=== PATIENT | male | born 1935 | race Caucasian/White ===

== ENCOUNTER → 2018-06-12 09:31 | Outpatient (CLI) | payer MEDICARE, SELFPAY ==
[2018-06-12 12:40] LABS: AST(SGOT) 28 U/L (15-37); Alanine Aminotransfer ALT/SGPT 38 U/L (16-61); Albumin, Serum 3.5 g/dL (3.2-5.0); Alkaline Phosphatase 137 U/L (45-117); Bilirubin, Direct 0.26 mg/dL (0.00-0.30); Cholesterol 123 mg/dL (200); Globulin 3.6 g/dL (2.2-4.2); High Density Lipoprotein 40 mg/dL; Protein, Total 7.1 g/dL (6.4-8.2); Triglycerides 99 mg/dL; Very Low Density Lipoprotein 20 mg/dL (5-40)
== END ==
PROVIDERS: Family Provider Internal Medicine; PCP Internal Medicine; Referring Provider Internal Medicine Cardiovascular Disease; Visit Provider Internal Medicine Cardiovascular Disease
DX: E78.5 Hyperlipidemia, unspecified (principal)
CPT/HCPCS: 36415; 80061; 80076

== ENCOUNTER → 2019-06-05 10:05 | Outpatient (CLI) | payer MEDICARE, SELFPAY ==
[2018-06-20 09:58] VITALS: BMI 26.8
[2019-06-05 12:44] LABS: AST(SGOT) 27 U/L (15-37); Alanine Aminotransfer ALT/SGPT 37 U/L (16-61); Albumin, Serum 3.7 g/dL (3.2-5.0); Alkaline Phosphatase 132 U/L (45-117); Bilirubin, Direct 0.29 mg/dL (0.00-0.30); Cholesterol 160 mg/dL (200); Globulin 3.7 g/dL (2.2-4.2); High Density Lipoprotein 44 mg/dL; Protein, Total 7.4 g/dL (6.4-8.2); Triglycerides 138 mg/dL; Very Low Density Lipoprotein 28 mg/dL (5-40)
== END ==
PROVIDERS: Family Provider Internal Medicine; PCP Internal Medicine; Referring Provider Internal Medicine Cardiovascular Disease; Visit Provider Internal Medicine Cardiovascular Disease
DX: E78.5 Hyperlipidemia, unspecified (principal)
CPT/HCPCS: 36415; 80061; 80076

== ENCOUNTER → 2020-06-02 07:55 | Outpatient (CLI) | payer MEDICARE, SELFPAY ==
[2019-06-10 09:34] VITALS: BMI 25.8
[2020-06-02 10:57] LABS: AST(SGOT) 29 U/L (15-37); Alanine Aminotransfer ALT/SGPT 33 U/L (16-61); Albumin, Serum 3.6 g/dL (3.2-5.0); Alkaline Phosphatase 121 U/L (45-117); Bilirubin, Direct 0.28 mg/dL (0.00-0.30); Cholesterol 247 mg/dL (200); Globulin 3.8 g/dL (2.2-4.2); High Density Lipoprotein 47 mg/dL; Protein, Total 7.4 g/dL (6.4-8.2); Triglycerides 140 mg/dL; Very Low Density Lipoprotein 28 mg/dL (5-40)
== END ==
PROVIDERS: PCP Internal Medicine; Referring Provider Internal Medicine Cardiovascular Disease; Visit Provider Internal Medicine Cardiovascular Disease
DX: E78.00 Pure hypercholesterolemia, unspecified (principal)
CPT/HCPCS: 36415; 80061; 80076

== ENCOUNTER → 2020-12-07 07:14 | Outpatient (CLI) | payer MEDICARE, SELFPAY ==
[2019-06-10 09:34] VITALS: BMI 25.8
[2020-12-07 11:07] LABS: AST(SGOT) 29 U/L (15-37); Alanine Aminotransfer ALT/SGPT 34 U/L (16-61); Albumin, Serum 3.7 g/dL (3.2-5.0); Alkaline Phosphatase 135 U/L (45-117); Cholesterol 162 mg/dL (200); Globulin 3.4 g/dL (2.2-4.2); High Density Lipoprotein 45 mg/dL; Protein, Total 7.1 g/dL (6.4-8.2); Triglycerides 112 mg/dL; Very Low Density Lipoprotein 22 mg/dL (5-40)
== END ==
PROVIDERS: PCP Internal Medicine; Referring Provider Internal Medicine Cardiovascular Disease; Visit Provider Internal Medicine Cardiovascular Disease
DX: E78.00 Pure hypercholesterolemia, unspecified (principal)
CPT/HCPCS: 36415; 80061; 80076

== ENCOUNTER → 2021-12-09 | Outpatient (CLI) | payer MEDICARE, SELFPAY ==
[2021-12-09 12:36] LABS: AST(SGOT) 33 U/L (15-37); Alanine Aminotransfer ALT/SGPT 42 U/L (16-61); Albumin, Serum 3.5 g/dL (3.2-5.0); Alkaline Phosphatase 116 U/L (45-117); Bilirubin, Direct 0.21 mg/dL (0.00-0.30); Cholesterol 170 mg/dL (200); Globulin 3.7 g/dL (2.2-4.2); High Density Lipoprotein 42 mg/dL; Protein, Total 7.2 g/dL (6.4-8.2); Triglycerides 111 mg/dL; Very Low Density Lipoprotein 22 mg/dL (5-40)
== END | disposition home or self-care (01) ==
LOC: MTLAB 09:56
PROVIDERS: PCP Internal Medicine; Referring Provider Internal Medicine Cardiovascular Disease; Visit Provider Internal Medicine Cardiovascular Disease
DX: E78.00 Pure hypercholesterolemia, unspecified (principal); E78.5 Hyperlipidemia, unspecified
CPT/HCPCS: 36415; 80061; 80076

== ENCOUNTER → 2022-11-13 | Outpatient (CLI) | payer MEDICARE, SELFPAY ==
--- NOTE | 2022-11-13 14:10 | STRESSREP_ITS ---
Stress Test Report Pharmacologic myocardial perfusion stress test. 87-year-old man with a history of coronary artery disease Resting EKG demonstrates sinus bradycardia with a rate of 48 bpm. Left bundle branch block pattern is noted. Resting blood pressure is 186/90 mmHg. 0.4 mg of regadenoson was infused per usual protocol followed by rapid intravenous sa line flush injection. Continuous EKG monitoring was performed. The maximum heart rate was 75 bpm which was 55% of max impacted heart rate the maximum workload was 1 metabolic equivalent. At rest there were no ST or T wave changes noted to suggest ischemia and at peak infusion nonspecific ST changes were noted which did not meet the criteria for ischemia. No clinical angina is noted. The final blood pressure was 154/92 mmHg. Myocardial perfusion protocol. 14.1 mCi of technetium 99m sestamibi was injected at rest. 0.4 mg of regadenoson was infused per usual protocol. At peak infusion 43.9 mCi of technetium 99m sestamibi was injected stress images were obtained stress and rest images were reconstructed and compared in the short axis vertical long and horizontal long axis. Gated images were also obtained. Perfusion SPECT analysis: Review of the stress images demonstrate normal uptake of tracer noted in all areas of the myocardium. The resting images similar demonstrated normal uptake of tracer noted in all areas of the myocardium. No areas of reversibility are noted to suggest ischemia and no previous infarct is noted. Gated SPECT analysis: The gated ejection fraction is 61%. Conclusion: Normal pharmacologic myocardial perfusion stress test. Preserved ejection fraction.
== END | disposition home or self-care (01) ==
PROVIDERS: PCP Internal Medicine; Referring Provider Internal Medicine Cardiovascular Disease; Visit Provider Internal Medicine Cardiovascular Disease
DX: I25.10 Atherosclerotic heart disease of native coronary artery without angina pectoris (principal); I44.7 Left bundle-branch block, unspecified; R94.31 Abnormal electrocardiogram [ECG] [EKG]; Z95.5 Presence of coronary angioplasty implant and graft
CPT/HCPCS: 78452; 93017; A9500; A4216; J2785

== ENCOUNTER 2023-01-03 18:02 | Emergency (ER) | payer MEDICARE, SELFPAY ==
[2023-01-03 18:03] VITALS: BP 170/73; PULSE 57; RESP 18; TEMP 37; BMI 27.1
--- NOTE | 2023-01-03 18:11 | CT_ITS ---
STUDY: CT BRAIN WITHOUT CONTRAST REASON FOR EXAM: Male, 87 years old. Head injury, fall RADIATION DOSAGE (If Supplied By Facility): CTDIvol = ( 44.99 ) mGy, DLP = ( 812.98 ) mGycm TECHNIQUE: Transaxial CT imaging of the brain was performed without administration of intravenous contrast material. Individualized dose optimization techniques were used for this CT. COMPARISON: May 21, 2015s FINDINGS: There is right frontal soft tissue swelling Normal calvarium. There is mild cerebral atrophy with widening of the extra-axial spaces and ventricular dilatation. There are areas of decreased attenuation within the white matter tracts of the supratentorial brain, consistent with microvascular disease changes. Normal basal ganglia and thalami. Normal brainstem. Normal cerebellum. There is no intracranial hemorrhage. There are no findings of an acute ischemic infarction. There is moderate mucosal thickening of the paranasal sinuses. CT/Brain/Head without Contrast IMPRESSION: Chronic involutional changes of the brain. Electronically Signed: John Serra MD at 18:58 EDT ,
--- NOTE | 2023-01-03 18:11 | CT_ITS ---
STUDY: CT FACIAL BONES WITHOUT CONTRAST REASON FOR EXAM: Male, 87 years old. Fall RADIATION DOSAGE (If Supplied By Facility): CTDIvol = ( 29.38 ) mGy, DLP = ( 474.11 ) mGycm TECHNIQUE: The patient was scanned in a multi detector CT scanner. Sagittal and coronal images were reconstructed. Individualized dose optimization techniques were used for this CT. COMPARISON: None. FINDINGS: There is right frontal soft tissue swelling. Normal orbital coleman and orbital contents. Normal nasal bones and anterior nasal spine. Normal zygomatic arches. Normal mandible. There are numerous missing teeth and cavities in the remaining teeth. Normal facial bones. There is no demonstrated fracture. There is moderate mucosal thickening of the paranasal sinuses. CT/Sinus/Facial Bone IMPRESSION: No fracture. Soft tissue swelling. Electronically Signed: John Serra MD at 19:00 EDT ,
--- NOTE | 2023-01-03 18:11 | CT_ITS ---
STUDY: CT CERVICAL SPINE WITHOUT CONTRAST REASON FOR EXAM: Male, 87 years old. Fall RADIATION DOSAGE (If Supplied By Facility): CTDIvol = ( 24.58 ) mGy, DLP = ( 584.19 ) mGycm TECHNIQUE: High resolution transaxial imaging was performed without contrast material. Sagittal and coronal images were reconstructed. Individualized dose optimization techniques were used for this CT. COMPARISON: None FINDINGS: Normal craniovertebral junction. Normal anterior atlantoaxial articulation. Normal odontoid process. There is reversal of the normal cervical lordosis. There is no acute fracture. There is demineralization of the Vertebral bodies and posterior osseous elements. C2-3: Normal endplates. Normal disc height and morphology. Facet spurring on the right. Normal central canal and intervertebral neuroforamina. C3-4: Disc space narrowing. Mild spurring to the right. Facet spurring on the right more than the left. No canal stenosis. Mild foraminal narrowing. C4-5: Disc space narrowing. Mild spurring. Facet spurring. No canal stenosis. Left foraminal narrowing C5-6: Disc space narrowing. Disc bulge and spurring. Facet spurring. No canal stenosis. Mild left foraminal narrowing. C6-7: Disc space narrowing. Disc bulge and spurring. Mild facet spurring. No canal stenosis. Neural foramina are patent. C7-T1: Normal endplates. Normal disc height and morphology. Facet spurring. Normal central canal and intervertebral neuroforamina. Normal visualized soft tissue structures. CT/Spine Cervical without Contras IMPRESSION: Multilevel degenerative changes, as described above. Electronically Signed: John Serra MD at 19:04 EDT ,
--- NOTE | 2023-01-03 18:13 | EX.ED.GENINJ ---
HPI History of Present Illness Chief Complaint: Fall Detail of Chief Complaint: Fall with head injury Informant: patient Narrative Narrative: Patient presents with a fall and head injury that occurred prior arrival in the emergency department. Patient states that he was working on a flatbed trailer that was stationary they had put to 4 x 4 boards on it that were not nailed in yet and he fell and tumbled off of them onto the ground. Apparently he hit his head on a 2 x 4. No loss of consciousness but his daughter states that he was confused afterwards. Patient denies any neck or chest pain. Denies abdominal pain. He denies pain in his hips he was able to stand. Patient is on Plavix and aspirin and has a cardiac stent. Patient unsure of his last tetanus shot. [facility] Medical History Atherosclerotic heart disease of [place] coronary artery without angina pectoris Encounter for long-term (current) use of other medications Essential (primary) hypertension Hyperlipidemia Left bundle branch block Sinus bradycardia Home Medications nitroglycerin 0.4 mg sublingual tablet (Nitrostat) 0.4 mg sublingual Q5-15M PRN Chest Pain 07/04/17 [History Last Taken Unknown] cinnamon bark-chromium picolinate 500 mg-100 mcg capsule cap PO 07/05/17 [History Last Taken Unknown] garlic 1,000 mg capsule 1,000 mg PO QPC 07/05/17 [History Last Taken Unknown] omega-3 fatty acids-fish oil 360 mg-1,200 mg capsule (Fish Oil) 1 cap PO QDAY 07/05/17 [History Last Taken Unknown] coenzyme Q10 100 mg capsule (Co Q-10) 100 mg PO DAILY 12/15/21 [History Last Taken Unknown] clopidogrel 75 mg tablet (Plavix) 75 mg PO QDAY #90 tabs 10/18/22 [Rx Last Taken Unknown] hydrochlorothiazide 25 mg tablet 25 mg PO QDAY #90 tabs 10/18/22 [Rx Last Taken Unknown] losartan 50 mg tablet 50 mg PO DAILY #90 tabs 10/18/22 [Rx Last Taken Unknown] metoprolol tartrate 25 mg tablet 25 mg PO BID #180 tabs 10/18/22 [Rx Last Taken Unknown] atorvastatin 20 mg tablet See Rx Instructions .Route .COMPLEX #90 tabs 12/19/22 [Rx Last Taken Unknown] aspirin 325 mg tablet 325 mg PO DAILY 01/03/23 [History Last Taken Unknown] cephalexin 500 mg capsule 500 mg PO Q6 #40 CAPSULES 01/03/23 [Rx Last Taken Unknown] Allergy/AdvReac Type Severity Reaction Status Date / Time No Known Allergies Allergy Verified 12/15/21 10:18 Family History Sister CAD (coronary artery disease) Hypertension Brother Hypertension Surgical History History of coronary artery stent placement (10/13/03) Social History Smoking Status: Never smoker alcohol intake: never ROS ROS ED Review of Systems ROS Unobtainable: other Constitutional Constitutional ED: Reports lethargy; Denies chills, fever(s), sweats or weight loss Eyes Eyes: Denies blurry vision, change in vision or diplopia ENT ENT ED: Reports other Details: Forehead laceration ; Denies rhinorrhea or sore throat Cardiovascular Cardiovascular: Denies chest pain, orthopnea or racing heartbeat Respiratory/Chest Respiratory/Chest: Denies cough, dyspnea, dyspnea on exertion, orthopnea or sputum Gastrointestinal Gastrointestinal: Denies abdominal pain, diarrhea, nausea or vomiting Genitourinary Genitourinary ED: Denies dysuria, hematuria or urinary frequency Musculoskeletal Musculoskeletal: Denies arthralgias, back pain, myalgias or neck pain Integumentary Denies abscess, Abrasions or rash Neurologic Neurologic: Denies headache(s) or weakness Psychiatric Psychiatric: Denies anxiety, depression or suicidal thoughts Endocrine Endocrinology: Denies polydipsia, polyphagia or polyuria Hematologic/Lymphatic Hematologic/Lymphatic: Denies easy bleeding, easy bruising or lymphadenopathy Allergic/Immunologic Allergic/Immunologic ED: Denies mouth swelling, tongue swelling or urticaria EXAM Physical Exam Const Vital Signs: 01/03/23 18:03 01/03/23 18:08 Temperature 98.6 F Temperature Source Oral Pulse Rate 57 L Respiratory Rate 18 Respiratory Effort Normal Respiratory Depth Normal Respiratory Pattern Normal Blood Pressure 170/73 H Blood Pressure Mean 105 Positive well nourished and well developed General Appearance ED: well developed and NAD HEENT Reports TM's clear and moist mucous membranes HEENT Narrative: 5 cm laceration to the right side of the forehead that is linear. No bony step-offs or depressions noted. Patient also has superficial abrasion to the right zygomatic arch with some tenderness to palpation. normocephalic and atraumatic; Negative for trauma or tenderness Tympanic Membrane ED: Yes TM's clear Eyes PERRL and EOMs intact bilaterally General Eye ED: Negative for pale conjunctiva or scleral icterus Neck no lymphadenopathy, supple and no JVD General: Negative for tenderness Chest Wall inspection of chest normal and palpation of chest normal Chest: Negative for tenderness Resp normal respiratory effort and clear to auscultation bilaterally Effort and Inspection: Negative for respiratory distress or pain with movement Auscultation: Negative for rhonchi, wheezes or diminished lung sounds Cardio regular rate, regular rhythm, S1 normal heart sound, S2 normal heart sound and no murmurs Peripheral Pulses: pulses 2+ throughout GI normal to inspection, nondistended, normoactive bowel sounds, soft to palpation, non-tender, non-distended and no masses Back/Spine no CVA tenderness and no thoracic nor lumbar tenderness Extremity normal to inspection General Extremety ED: Negative for edema General Extremity: Negative for edema Neuro oriented x3, CN's II-XII intact bilaterally, no sensory deficits noted and gait normal Sensorium / Orientation: awake, alert, oriented to person, oriented to place and oriented to time Motor Exam: strength 5/5 throughout and strength abnormal Psych mental status grossly normal Skin no rashes or lesions noted and no wounds PROC Procedures Lacerations Right forehead laceration: Length: 1.97 in Depth: Sub Q Prep: Sterile Conditions and Shure-Clens Laceration repair: Foreign material removed, Irrigated, Lidocaine with epi, Local and Skin sutures Irrigated (ml): 100 Number of Sutures/Hico: 6 Suture Information: Ethilon, Simple and 4-0 MDM MDM MDM Narrative Medical decision making narrative: Patient presents with a head injury after falling off a flatbed truck and striking his head. No loss of consciousness. Presents with a GCS of 15. Patient had CT scan of the brain that was unremarkable. CT scan of C-spine and facial bones also unremarkable. Please see procedure note for laceration repair of his right forehead. The wound did have particulate debris within it that I irrigated and removed with wet 4 x 4's. Because it is a dirty wound I will start him on Keflex and gave first dose in the emergency department. Patient advised to follow-up with his primary care physician in 10 days for suture removal. He is to return if increasing pain, redness, swelling, purulent drainage, or condition should worsen anyway. Radiography Diagnostic Testing: Clinical Impression(s) from Imaging Studies Brain CT 01/03/23 18:11 IMPRESSION: Chronic involutional changes of the brain. Electronically Signed: John Serra MD at 18:58 EDT , Cervical Spine CT 01/03/23 18:11 IMPRESSION: Multilevel degenerative changes, as described above. Electronically Signed: John Serra MD at 19:04 EDT , Facial/Sinus 01/03/23 18:11 IMPRESSION: No fracture. Soft tissue swelling. Electronically Signed: John Serra MD at 19:00 EDT , Discharge Plan Triage Chief Complaint: Fall ED Provider: Marcelle Chua Dx/Rx/DC Orders Clinical Impression: Closed head injury, Forehead laceration, Abrasion of face Instructions: ED Abrasion, ED Head Injury (Adult), ED Laceration: All Closures Prescriptions: New cephalexin [cephalexin] 500 mg capsule 500 mg PO Q6 Qty: 40 0RF No Action nitroglycerin [Nitrostat] 0.4 mg tablet, sublingual 0.4 mg SUBLINGUAL Q5-15M PRN (Reason: Chest Pain) omega-3 fatty acids-fish oil [Fish Oil] 360-1,200 mg capsule 1 cap PO QDAY cinnamon bark-chromium picolinate 500 mg-100 mcg capsule 500-100 mg-mcg capsule PO garlic 1,000 mg capsule 1,000 mg PO QPC coenzyme Q10 [Co Q-10] 100 mg capsule 100 mg PO DAILY aspirin 325 mg Tablet 325 mg PO DAILY clopidogrel [Plavix] 75 mg tablet 75 mg PO QDAY Qty: 90 3RF metoprolol tartrate 25 mg tablet 25 mg PO BID Qty: 180 3RF hydrochlorothiazide 25 mg tablet 25 mg PO QDAY Qty: 90 3RF losartan 50 mg tablet 50 mg PO DAILY Qty: 90 3RF atorvastatin 20 mg tablet See Rx Instructions .ROUTE .COMPLEX Qty: 90 3RF Dose Instruction: TAKE 1 TABLET BY MOUTH EVERY DAY Rx Instructions: TAKE 1 TABLET BY MOUTH EVERY DAY Primary Care Provider: Airam Reina Referrals: Airam Reina DO [Primary Care Provider] - 7 Days for suture removal Disposition Disposition: Home, Self Care
[2023-01-03] MEDS: Lidocaine 1% /Epi 1:100 (20ml) 20 ML Vial 8 ML INFILT (18:55)
[2023-01-03] MEDS: Diphth,Pertuss(Acell),Tet Vac 0.5 ML Vial IM (19:02)
[2023-01-03] MEDS: Cephalexin 250 MG Capsule 500 MG PO (19:59)
[2023-01-03 20:00] VITALS: BP 162/79
== END 2023-01-03 20:01 | disposition home or self-care (01) ==
PROVIDERS: Emergency Provider Emergency Medicine; PCP Internal Medicine; Visit Provider Emergency Medicine
DX: S01.82XA Laceration with foreign body of other part of head, initial encounter (principal); W17.89XA Other fall from one level to another, initial encounter; Z23 Encounter for immunization; I10 Essential (primary) hypertension; E78.5 Hyperlipidemia, unspecified; I25.10 Atherosclerotic heart disease of native coronary artery without angina pectoris; Z79.82 Long term (current) use of aspirin; Z79.02 Long term (current) use of antithrombotics/antiplatelets; Z79.899 Other long term (current) drug therapy; Z95.5 Presence of coronary angioplasty implant and graft
CPT/HCPCS: 12052; 70450; 70486; 72125; 90471; 99285; A4216

== ENCOUNTER → 2024-02-06 | Outpatient (CLI) | payer MEDICARE, SELFPAY ==
[2024-02-06 10:44] LABS: AST(SGOT) 17 U/L (15-37); Alanine Aminotransfer ALT/SGPT 23 U/L (16-61); Albumin, Serum 3.5 g/dL (3.2-5.0); Alkaline Phosphatase 148 U/L (45-117); Cholesterol 154 mg/dL (200); Globulin 3.8 g/dL (2.2-4.2); High Density Lipoprotein 38 mg/dL; Protein, Total 7.3 g/dL (6.4-8.2); Triglycerides 139 mg/dL; Very Low Density Lipoprotein 28 mg/dL (5-40)
== END | disposition home or self-care (01) ==
LOC: MTLAB 07:50
PROVIDERS: PCP Internal Medicine; Referring Provider Internal Medicine Cardiovascular Disease; Visit Provider Internal Medicine Cardiovascular Disease
DX: E78.00 Pure hypercholesterolemia, unspecified (principal)
CPT/HCPCS: 36415; 80061; 80076

== ENCOUNTER 2024-03-12 07:02 | Day surgery (SDC) | payer MEDICARE, SELFPAY ==
[2024-03-12] VITALS (7 sets, daily range): BP systolic 133–150; BP diastolic 48–68; PULSE 57–61; RESP 16–17; TEMP 36.7–37.1; O2SAT 93–97; BMI 23.3
--- NOTE | 2024-03-12 07:36 | PCM.PRE.AN2 ---
ASA Classification* ASA Classification ASA Classification: 3 Assessment & Plan Anesthesia* Anesthesia Assessment Anesthesia Assessment: Discussed sedation and/or anesthesia options, risks, benefits, and alternatives with patient/parents/legal guardian/POA. Questions invited. The patient/parents/legal guardian/POA seems to understand and agrees to proceed with anesthesia plan. Reviewed the physical assessment, medical history, allergy history and patient home medications list prior to surgery/procedure/anesthetic and documented any changes. Performed airway and anesthesia risk assessments. 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 When Was Last Pacemaker Check QUESTION #4 FULL TEXT: You/Your Family Experience fever (hyperthermia) with Anesthesia Last Oral Intake Last Oral intake: Last Oral Intake NPO since Meds taken in AM with sips of water? Meds patient instructed to take am of surgery PONV PONV - director medical affairs: PONV - director medical affairs Female No 03/11/24 15:26 HX of Motion Sickness No 03/11/24 15:26 HX of N/V After Surgery No 03/11/24 15:26 Non-Smoker Yes 03/11/24 15:26 Duration of Surgery greater No 03/11/24 15:26 than 60 minutes Number of Risk Factors 1 03/11/24 15:26 PONV Score Low Risk 03/11/24 15:26 Height & Weight Height & Weight: Anesthesia: Height & Weight Height 5 ft 10 in 03/10/24 09:07 Respiratory Assessment Respiratory Assessment - director medical affairs: Respiratory Tract Infection Hx - director medical affairs Hx Respiratory Tract Infection No 03/11/24 15:26 STOP Sleep Apnea STOP Sleep Apnea - director medical affairs: STOP Sleep Apnea - director medical affairs Hx Hypertension Yes: CONTROLLED WITH MED 03/11/24 15:26 Hx Sleep Apnea No 03/11/24 15:26 CPAP BIPAP Do you snore loudly (louder No 03/11/24 15:26 than talking or can be heard Do you often feel tired/ No 03/11/24 15:26 fatigued/ sleepy during daytime? Has anyone observed you stop No 03/11/24 15:26 breathing during sleep? STOP Results Negative 03/11/24 15:26 QUESTION #5 FULL TEXT : Do you snore loudly (louder than talking or can be heard through closed doors)? 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 Specify any problems Hx of Preganancy in last 3 N/A 03/11/24 15:26 Months Nurse Filling Out Transfusion NBUCHER 03/11/24 15:26 & Questions: Date: 03/11/24 03/11/24 15:26 Time: 15:03/11/24 15:26 Patient unable to answer at this time (ie. confused, unrespo /Reproduction History /Reproductive History - director medical affairs: /Reproductive Hx- director medical affairs Hx Now No 03/11/24 15:26 Gestational Age (in weeks): EDC: Hx Hx Para Hx Section SAB No 03/11/24 15:26 Active Medications Active Medications: Current Medications Generic Name Dose Route Start Last Admin Trade Name Freq PRN Reason Stop Dose Admin Lactated Ringer's 1,000 mls @ 15 mls/hr 03/12/24 07:15 IV .Q48H KAILEE Cefazolin Sodium 2 gm/ Sodium 110 mls @ 150 mls/hr 03/12/24 07:30 Chloride IV 03/12/24 08:13 PREOP ONE PFSH Medical History Wears hearing aid Loss of hearing Wears glasses Wears partial dentures Arthritis High cholesterol Difficulty chewing Shortness of breath on exertion Non-smoker Hypertension History of stress test Cardiology follow-up encounter History of skin cancer History of pneumonia History of high cholesterol History of hypertension History of hepatitis History of heart disease History of hearing problem History of cataract Concussion Essential (primary) hypertension Encounter for long-term (current) use of other medications Hyperlipidemia Atherosclerotic heart disease of [place] coronary artery without angina pectoris Left bundle branch block Sinus bradycardia Home Medications ?Medication ?Instructions ?Recorded ?Last Taken ?Type nitroglycerin 0.4 mg sublingual 0.4 mg sublingual Q5-15M PRN Chest 07/04/17 Unknown History tablet (Nitrostat) Pain cinnamon bark-chromium picolinate 1 cap PO DAILY 07/05/17 Unknown History 500 mg-100 mcg capsule garlic 1,000 mg capsule 1,000 mg PO QPC 07/05/17 Unknown History omega-3 fatty acids-fish oil 360 1 cap PO QDAY 07/05/17 Unknown History mg-1,200 mg capsule (Fish Oil) coenzyme Q10 100 mg capsule (Co 100 mg PO DAILY 12/15/21 Unknown History Q-10) magnesium glycinate 150 mg PO DAILY 02/08/23 Unknown History clopidogrel 75 mg tablet See Rx Instructions .Route 05/08/23 Unknown Rx .COMPLEX #90 tabs hydrochlorothiazide 25 mg tablet 25 mg PO QDAY #90 tabs 06/29/23 Unknown Rx losartan 50 mg tablet 50 mg PO DAILY #90 tabs 06/29/23 Unknown Rx atorvastatin 20 mg tablet 20 mg PO DAILY #90 TABLETS 01/10/24 Unknown Rx aspirin 81 mg capsule 81 mg PO DAILY 03/11/24 Unknown History metoprolol tartrate 25 mg tablet 12.5 mg PO BID 03/11/24 Unknown History Allergy/AdvReac Type Severity Reaction Status Date / Time No Known Allergies Allergy Verified 03/12/24 07:35 Family History Sister CAD (coronary artery disease) Hypertension Brother Hypertension Surgical History History of coronary artery stent placement (10/13/03) Social History Smoking Status: Never smoker alcohol intake: never substance use type: does not use additional social history: pt denies vaping,denies edibles, denies marijuana use, uses iburprofen as needed takes baby aspirin daily. Review of Systems (Anesthesia) ROS Narrative System reviewed and no additional complaints, except as documented.
[2024-03-12] MEDS: Lactated Ringers 1,000 ML 15 ML IV (07:37)
--- NOTE | 2024-03-12 08:49 | HP.PCM_ITS ---
HPI - General HPI Narrative INTERVAL H&P WILLEM WITT, is a 89 M who presents for surgery (left forearm squamous cell excision) . No change in health history since H&P in clinic [facility] Medical History Wears hearing aid Loss of hearing Wears glasses Wears partial dentures Arthritis High cholesterol Difficulty chewing Shortness of breath on exertion Non-smoker Hypertension History of stress test Cardiology follow-up encounter History of skin cancer History of pneumonia History of high cholesterol History of hypertension History of hepatitis History of heart disease History of hearing problem History of cataract Concussion Essential (primary) hypertension Encounter for long-term (current) use of other medications Hyperlipidemia Atherosclerotic heart disease of [place] coronary artery without angina pectoris Left bundle branch block Sinus bradycardia Home Medications ?Medication ?Instructions ?Recorded ?Last Taken ?Type nitroglycerin 0.4 mg sublingual 0.4 mg sublingual Q5-15M PRN Chest 07/04/17 Unknown History tablet (Nitrostat) Pain cinnamon bark-chromium picolinate 1 cap PO DAILY 07/05/17 03/11/24 History 500 mg-100 mcg capsule garlic 1,000 mg capsule 1,000 mg PO QPC 07/05/17 03/11/24 History omega-3 fatty acids-fish oil 360 1 cap PO QDAY 07/05/17 Unknown History mg-1,200 mg capsule (Fish Oil) coenzyme Q10 100 mg capsule (Co 100 mg PO DAILY 12/15/21 03/11/24 History Q-10) magnesium glycinate 150 mg PO DAILY 02/08/23 03/11/24 History clopidogrel 75 mg tablet See Rx Instructions .Route 05/08/23 03/11/24 Rx .COMPLEX #90 tabs hydrochlorothiazide 25 mg tablet 25 mg PO QDAY #90 tabs 06/29/23 03/11/24 Rx losartan 50 mg tablet 50 mg PO DAILY #90 tabs 06/29/23 03/11/24 Rx atorvastatin 20 mg tablet 20 mg PO DAILY #90 TABLETS 01/10/24 Unknown Rx aspirin 81 mg capsule 81 mg PO DAILY 03/11/24 03/11/24 History metoprolol tartrate 25 mg tablet 12.5 mg PO BID 03/11/24 03/11/24 History Allergy/AdvReac Type Severity Reaction Status Date / Time No Known Allergies Allergy Verified 03/12/24 07:35 Family History Sister CAD (coronary artery disease) Hypertension Brother Hypertension Surgical History History of coronary artery stent placement (10/13/03) Social History Smoking Status: Never smoker alcohol intake: never substance use type: does not use additional social history: pt denies vaping,denies edibles, denies marijuana use, uses iburprofen as needed takes baby aspirin daily. Vital Signs Vital Signs Vital Signs: 03/12/24 07:38 03/12/24 07:38 Temperature 98.1 F Temperature Source Temporal Pulse Rate 57 L Respiratory Rate 17 Respiratory Pattern Normal Blood Pressure 150/66 H Blood Pressure Mean 94 Blood Pressure Source Monitor Blood Pressure Position Semi-Fowlers Blood Pressure Location Right Arm Pulse Ox 97 Oxygen Delivery Method Room Air Weight Weight: 163 lb 2.273 oz Body Mass Index (BMI) 23.3 Physical Exam Narrative Left forearm SSC lesion s/p shave excision. 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
[2024-03-12] MEDS: Cefazolin 2 GM in 0.9% Normal Saline (100mL Bag) 100 ML IV (08:57)
--- NOTE | 2024-03-12 09:10 | LES_PTH ---
PATIENT: WILLEM WITT JUNIOR LOC: [facility] [place]#:[id number] AGE/SX: 89/M ROOM: RE03/12/[address]: Dr. Dedrick Amaro MD : [id number] BED: DIS: 03/12/2024 SPEC #: [id number] RECD: 03/12/24 09:49 STATUS: JENNA ELENA #: [id number] TOÑITO: 03/12/24 09:[address]: Dedrick Amaro DEPT: SURGICAL PATHOLOGY RECD BY: Johnny Jenkins ENTERED: 03/12/24 09:49 SP TYPE: Lesion OTHR DR: Dr. Airam Reina DO Tissues: A - Skin of forearm, NOS B - Skin of forearm, NOS Procedures: Frozen Section (charge) Surgery Specimen Level IV HEADER OPERATION: Excision of left forearm squamous cell carcinoma with closure PRE-OP DIAGNOSIS: Squamous cell carcinoma left forearm TISSUE SUBMITTED: A- Left forearm squamous cell carcinoma- long ulnar, short proximal, B- Margins for left forearm squamous cell, long dorsal ulnar, short proximal FROZEN SECTION DIAGNOSIS A. Left forearm lesion, excisional biopsy: Margins are free of tumor. . 03/12/2024 MICROSCOPIC DIAGNOSIS A. Left forearm lesion, excisional biopsy: Focal ulceration and inflammation consistent with previous biopsy site. Negative for residual carcinoma. Actinic keratosis and solar elastosis. B. Left forearm lesion, re-excision: Focal defect, consistent with site of specimen A. Negative for carcinoma. Actinic keratosis and solar elastosis. / 03/13/2024 COMMENT Case has been reviewed in consultation with Dr. Roach who concurs with the above diagnosis. IDC:AM MICROSCOPIC DESCRIPTION Slides are reviewed. GROSS DESCRIPTION A. Received fresh for frozen section consultation/diagnosis labeled with the patient's name is a specimen designated Left forearm squamous cell carcinoma. The specimen consists of an ovoid piece of morfin-white skin measuring 2.2 x 1.7 x 0.2cm. The specimen is oriented as follows: long dorsal ulnar, short proximal. The specimen is inked as follows: Proximal- blue, Distal-black, Ulnar- yellow, Radial- green. The specimen is inked, serially sectioned and submitted entirely for frozen section diagnosis in two cassettes. B. Received in fixative is one container labeled with the patient's name and designated Margins for left forearm squamous cell carcinoma. The specimen consists of a piece of morfin-white skin ellipse measuring 5.5 x 3.0cm and up to 0.2cm in thickness and shows a central round defect measuring 2.5 x 2.2cm. The specimen is oriented as follows: Long dorsal ulnar, short proximal distal. The specimen is inked as follows: Proximal tip- yellow, distal tip- green, ulnar margin- black, radial margin- blue. The specimen is serially sectioned and submitted entirely in five cassettes. Cassette one contains most proximal portion of the specimen, cassette five contains the most distal portion of the specimen. CPT:15142,17015y8,36629 / 03/12/2024 TC:5
[2024-03-12] MEDS: Lidocaine 1% /Epi 1:100 (20ml) 20 ML Vial (09:30)
--- NOTE | 2024-03-12 10:04 | PCM.POST.ANE ---
Anesthesia: Postop Eval I Current Vital Signs Temperature: 98.3 F Pulse Rate: 61 Blood Pressure: 143/56 Respiratory Rate: 16 Pulse Ox: 96 Oxygen Delivery Method: Room Air Assessment Airway patent: Yes Spontaneous unlabored respirations: Yes Mental status: Awake and Calm nausea: No Vomiting: No Anesthesia Complication: No Fluid Hydration Crystalloid volume administer (ml): 400 Total IV fluid infused: 400 Progress Note Anesthesia document: Postop Eval 1 completed: Yes
--- NOTE | 2024-03-12 10:18 | POSTOPAN2_ITS ---
Anesthesia Postop Eval I Sum Postop Eval Completion status Anesthesia document: Postop Eval 1 completed: Yes Anesthesia Postop Eval I Summary Anesthesia Postop Eval I Summary: Anesthesia Postop Eval I: Assessment Summary Airway patent Yes 03/12/24 10:14 SEAMING [email or web address].[email or web address] Spontaneous unlabored Yes 03/12/24 10:14 SEAMING INSPECTOR.[email or web address] respirations Mental status Awake,Calm 03/12/24 10:14 SEAMING INSPECTOR.GDOTT nausea No 03/12/24 10:14 SEAMING INSPECTOR.GDOTT Vomiting No 03/12/24 10:14 SEAMING INSPECTOR.[email or web address] Anesthesia Postop Eval I: Fluid Summary Crystalloid volume administer 400 03/12/24 10:14 SEAMING INSPECTOR.GDOTT (ml) Colloids volume administered ( ml) Blood Product volume administered (ml) Total IV fluid infused 400 03/12/24 10:14 SEAMING INSPECTOR.GDOTT Anesthesia Postop Eval I: Summary Notes Anesthesia Complication No 03/12/24 10:14 SEAMING INSPECTOR.GDOTT Anesthesia Complication Comment: Post-operative progress note Anesthesia: Postop Eval II Evaluation Mental status: Awake Pain Level: 0 nausea: No Vomiting: No
--- NOTE | 2024-03-12 10:18 | PCM.POSTANE2 ---
Anesthesia Postop Eval I Sum Postop Eval Completion status Anesthesia document: Postop Eval 1 completed: Yes Anesthesia Postop Eval I Summary Anesthesia Postop Eval I Summary: Anesthesia Postop Eval I: Assessment Summary Airway patent Yes 03/12/24 10:14 BRICK AND BLOCKER AID LABOR.[email or web address] Spontaneous unlabored Yes 03/12/24 10:14 BRICK AND BLOCK[employer] AID LABOR.GDOTT respirations Mental status Awake,Calm 03/12/24 10:14 BRICK AND BLOCKER AID LABOR.GDOTT nausea No 03/12/24 10:14 BRICK AND BLOCKER AID LABOR.GDOTT Vomiting No 03/12/24 10:14 BRICK AND BLOCKER AID LABOR.GDOTT Anesthesia Postop Eval I: Fluid Summary Crystalloid volume administer 400 03/12/24 10:14 BRICK AND BLOCKER AID LABOR.GDOTT (ml) Colloids volume administered ( ml) Blood Product volume administered (ml) Total IV fluid infused 400 03/12/24 10:14 BRICK AND BLOCKER AID LABOR.GDOTT Anesthesia Postop Eval I: Summary Notes Anesthesia Complication No 03/12/24 10:14 BRICK AND BLOCKER AID LABOR.GDOTT Anesthesia Complication Comment: Post-operative progress note Anesthesia: Postop Eval II Evaluation Mental status: Awake Pain Level: 0 nausea: No Vomiting: No
--- NOTE | 2024-03-12 18:06 | OP.PCM_ITS ---
Operative Report Date of Procedure: 03/12/24 Surgery/Procedure Date: 12 March 2024 Incision/Procedure Start Time: 9:11 AM Incision Close/Procedure End Time: 9:57 AM PATIENT: Xavier Rowe PRE-OPERATIVE DIAGNOSIS: Left forearm squamous cell carcinoma POST-OPERATIVE DIAGNOSIS: Same PROCEDURE PERFORMED: 1) Excision of left forearm squamous cell carcinoma (3.5 cm) ( CPT: 56701) 2) Complex closure, 7 cm, left forearm (CPT: 94804) OPERATIVE FINDINGS: Negative frozen sections and 6 mm margins, both of which were sent for pe rmanent. INDICATIONS: Xavier Rowe is an 89-year-old male who was referred to me after shave biopsy demonstrated squamous cell carcinoma on his left forearm. The shave biopsy obscured the borders of the lesion. I therefore talked the patient about excising the entire shave and sending it for frozen sections, followed by excision with 6 mm margins given that there was a lymphocytic infiltrate. I did not appreciate any lymphadenopathy. He says the lesion was only there for about a month and was relatively small, but he does not know the orientation on the shave scab, and therefore warrants complete excision of the shave biopsy. 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 I told this to him and his granddaughter. OPERATIVE DETAILS: Patient was correctly identified in preoperative holding and marked by me, circling the lesion and making sure that we had the right scab fr om the shave biopsy. The patient and his granddaughter were in agreement. He was then taken back to the operating room where he was administered sedation and 15 cc of lidocaine with epinephrine for local block. He was prepped and draped in sterile fashion. A timeout was performed. The 2.3 x 2.3 cm scab/mass was then excised and sent to pathology with orientation of long ulnar suture, short proximal suture. The Frozen sections were negative. I therefore took another 6 mm margin around the mass for a 3.5 x 3.5 cm excision around the SSC (3.5 cm malignant lesion excision). Dog ears (proximal and distal triangles) were removed to help the incision close flat in a vertical orientation along the axis of the limb, and extensive undermining (7 cm total, 3.5 cm in both directions) was performed for advancement of the sides of the wound for closure (complex closure, 7 cm) with 3-0 Monocryl deep sutures and a running 3-0 Prolene suture. Steristrips were applied. The patient tolerated the procedure well and was awaken and taken to the PACU in stable condition. EBL: 5 cc 400 cc IVF (NS) No Bonds Anesthesia: Sedation and local (15 cc 1 %lidocaine with 1:100:000 epi) POST-OPERATIVE PLAN: F/u permanent sections from pathology for both specimens (mass as well as margins). No lifting/working with left upper extremity until healed (Discussed with the patient and his granddaughter). f/u in 1 week. OK to shower in 72 hours. Steristrips will fall off on their own.
== END 2024-03-12 11:10 | disposition home or self-care (01) ==
LOC: SDC 07:05 → AC 07:06
PROVIDERS: PCP Internal Medicine; Referring Provider Surgery Plastic and Reconstructive Surgery; Visit Provider Surgery Plastic and Reconstructive Surgery
PROC: (CPT 11406; principal; 2024-03-12 08:35)
DX: L57.0 Actinic keratosis (principal); I10 Essential (primary) hypertension; Z79.82 Long term (current) use of aspirin; E78.00 Pure hypercholesterolemia, unspecified; I25.10 Atherosclerotic heart disease of native coronary artery without angina pectoris; Z79.899 Other long term (current) drug therapy; L57.8 Other skin changes due to chronic exposure to nonionizing radiation; L08.9 Local infection of the skin and subcutaneous tissue, unspecified
CPT/HCPCS: 11406; 13121; 88305; 88331; J7120; J2405

== ENCOUNTER → 2024-05-08 | Outpatient (CLI) | payer MEDICARE, SELFPAY | END | disposition home or self-care (01) | LOC: LAB 15:09 | PROVIDERS: PCP Internal Medicine; Referring Provider Urology; Visit Provider Urology | DX: R97.20 Elevated prostate specific antigen [PSA] (principal) | CPT/HCPCS: 36415; 84153 ==

== ENCOUNTER → 2024-05-29 | Outpatient (CLI) | payer MEDICARE, SELFPAY | END | disposition home or self-care (01) | PROVIDERS: PCP Internal Medicine; Referring Provider Urology; Visit Provider Urology | DX: C80.1 Malignant (primary) neoplasm, unspecified (principal); R97.20 Elevated prostate specific antigen [PSA] | CPT/HCPCS: 88305; G0416 ==

== ENCOUNTER → 2024-06-16 | Outpatient (CLI) | payer MEDICARE, SELFPAY | END | disposition home or self-care (01) | PROVIDERS: PCP Internal Medicine; Referring Provider Urology; Visit Provider Urology | DX: C61 Malignant neoplasm of prostate (principal) | CPT/HCPCS: 78306; A9503 ==

== ENCOUNTER → 2025-02-05 | Outpatient (CLI) | payer MEDICARE, SELFPAY ==
[2025-02-05 13:02] LABS: AST(SGOT) 52 U/L (<=37); Alanine Aminotransfer ALT/SGPT 112 U/L (<=46); Albumin, Serum 3.9 g/dL (3.4-4.8); Alkaline Phosphatase 255 U/L (40-129); Bilirubin, Direct 0.48 mg/dL (0.00-0.30); Cholesterol 154 mg/dL (<=200); Globulin 2.6 g/dL (2.2-4.2); Low Density Lipoprotein Calc. 90 mg/dL; Triglycerides 98 mg/dL; Very Low Density Lipoprotein 20 mg/dL (5-40); cholesterol:hdl ratio screen 3.49
== END | disposition home or self-care (01) ==
LOC: MTLAB 08:44
PROVIDERS: PCP Internal Medicine; Referring Provider Internal Medicine Cardiovascular Disease; Visit Provider Internal Medicine Cardiovascular Disease
DX: E78.00 Pure hypercholesterolemia, unspecified (principal)
CPT/HCPCS: 36415; 80061; 80076